=== PATIENT | female | born 1965 | race Hispanic/Latino ===

== ENCOUNTER → 2016-05-28 | Day surgery (SDC) | payer OTHER ==
[~2016-05-28] VITALS: Ht 167.6 cm; Wt 80.3 kg
--- NOTE | 2016-05-29 12:48 | Operative Report ---
Operative/Inv Procedure Report Surgery Date: 05/28/16 Name of Procedure: Breast reduction Pre-Operative Diagnosis: Macromastia Post-Operative Diagnosis: Same Estimated Blood Loss: scant (150) Surgeon/Case Hardener: KOJO CALVERT MD Anesthesia: general endotracheal tube Operative/Procedure Note Note: The patient was counseled extensively Fabian proceeded the alternatives the risks and expected outcomes as relates to her request for surgical intervention for symptom management macromastia. We talked about infection bleeding pain and numbness possibility of change or loss of nipple sensation sensitivity or tissue. She was given and a SPS informed consents which she has returned side without further questions today. States she would like to be a guarantees were given in regards to cup size. She was marked in the standing position for an inferior pedicle Lin pattern technique. Placed supine on the table. Venodyne boots were placed and then general anesthesia was established the chest was prepped and draped in usual sterile fashion. Antibiotics were given. The incisions were deepened and an inferior pedicle Lin pattern technique was carried out excising superior medial and lateral segments. Temporary closure was placed in both breasts and she was put into the sitting position. Symmetry was good after small additional excision from the left. Nipple areolar complexes were located. Treated layer closure was carried out of all wounds. Ends dictation
== END ==
LOC: STS 05-21 07:00
DX: N62 Hypertrophy of breast (principal); M54.2 Cervicalgia; E21.3 Hyperparathyroidism, unspecified
CPT/HCPCS: 88305; J0131; J0690; J2250